=== PATIENT | male | born 1970 ===

== ENCOUNTER → 2020-07-06 | Outpatient (REF) | payer BC | LOC: M LAB REF 16:43 | PROVIDERS: ATTEND Physician Assistant Medical | DX: Z11.59 Encounter for screening for other viral diseases (principal) ==

== ENCOUNTER → 2020-07-09 | Outpatient (REF) | payer BC | LOC: M LAB REF 14:07 | PROVIDERS: ATTEND Physician Assistant Medical | DX: Z11.59 Encounter for screening for other viral diseases (principal) ==